=== PATIENT | female | born 1965 | race Hispanic/Latino ===

== ENCOUNTER 2016-08-01 05:07 | Emergency (ER) | payer OTHER ==
--- NOTE | 2016-08-01 05:10 | ED GENERAL ADULT ---
History of Present Illness General Chief Complaint: Lower Extremity Injury Stated Complaint: LEFT KNEE PAIN Source: patient Exam Limitations: no limitations Vital Signs & Intake/Output Vital Signs & Intake/Output Vital Signs Date Time Temp Pulse Resp B/P B/P Pulse O2 O2 Flow FiO2 Mean Ox Delivery Rate 08/01 0555 97 Room Air 08/01 05 97.4 76 18 96/65 97 Room Air 08/01 521 97.4 76 18 96/65 97 Room Air Allergies Coded Allergies: acetaminophen (From PERCOCET) (rash 08/01/16) oxycodone (From PERCOCET) (rash 08/01/16) Reconcile Medications Levothyroxine Sodium (Synthroid) 200 MCG TABLET 200 MCG PO D THYROID ( Reported) Triage Nurses Notes Reviewed? yes Onset: Abrupt Duration: hour(s): Timing: recent history HPI: 08/01/16 5:30 AM 50-year-old female presents to the emergency department with sudden onset of severe left-sided knee pain. The patient states she was in a usual state of health until early this morning when she bent over to get a shoe and she had sudden severe pain to the medial aspect of her left knee. She did not fall, there is no direct trauma. No other injuries or complaints. The onset of the symptoms were abrupt. The duration was just this morning. The severity was significant; as her symptoms required her to come to the emergency department for care Past History Travel History Traveled to [place] past 21 day No Medical History Any Pertinent Medical History? see below for history Endocrine: hypothyroidism Surgical History Surgical History: right arm surgery for nerve damage Family History Hx Contributory? No Review of Systems Review of Systems Constitutional: Denies: fever. EENTM: Reports: no symptoms. Respiratory: Denies: short of breath. Cardiovascular: Denies: chest pain. GI: Denies: abdominal pain. Genitourinary: Reports: no symptoms. Musculoskeletal: Reports: see HPI. Skin: Denies: rash. Neurological/Psychological: Reports: no symptoms. Hematologic/Endocrine: Reports: no symptoms. Physical Exam Physical Exam General Appearance: well developed/nourished, alert, awake, anxious, moderate distress Head: atraumatic, normal appearance Eyes: Bilateral: normal appearance, PERRL, EOMI. Ears, Nose, Throat: normal pharynx, normal ENT inspection Neck: normal inspection, supple Respiratory: normal breath sounds, chest non-tender, no respiratory distress Cardiovascular: regular rate/rhythm Peripheral Pulses: 4+ radial (R), 4+ radial (L) Back: normal range of motion Extremities: swelling, tenderness Neurologic/Psych: no motor/sensory deficits, awake, alert, oriented x 3 Skin: intact, normal color, warm/dry Comments: She has isolated tenderness to the medial aspect of the left knee. There is a small area of soft tissue swelling. There is no ligament instability. She can bear weight but with pain. She was given by mouth Motrin. X-ray was ordered and revealed no fracture but did show an effusion. She is placed in a knee immobilizer and crutches. Follow-up with orthopedist on Wednesday., Core Measures ACS in differential dx? No CVA/TIA Diagnosis: No Severe Sepsis Present: No Septic Shock Present: No Progress Differential Diagnoses I considered the following diagnoses in my evaluation of the patient: [Fracture, dislocation, knee sprain] Plan of Care: Orders Procedure Date/time Status Durable Medical Equipment 08/01 0720 Active Initial ED EKG: none Departure Departure Disposition: STILL A PATIENT Condition: Stable Clinical Impression Primary Impression: Knee sprain Referrals: CHRISTO JOSHUA,YUMIKO Mnejivar Departure Forms: Customer Survey General Discharge Information Critical Care Note Critical Care Note Critical Care Time: non-applicable
[2016-08-01 05:25] VITALS: BP 96/65
[2016-08-01] MEDS ORDERED: SYNTHROID200 MCG PO (05:55)
--- NOTE | 2016-08-01 07:09 | RADIOLOGY REPORT ---
EXAMINATION: XR KNEE, LEFT CLINICAL INFORMATION: Pain after fall. COMPARISON: No relevant prior imaging is available. TECHNIQUE: 3 views of the left knee. FINDINGS: There is no acute fracture or dislocation. Medial, lateral, and patellofemoral compartments are unremarkable. There is a tiny suprapatellar joint effusion. Soft tissues are otherwise unremarkable. IMPRESSION: Tiny suprapatellar joint effusion. Otherwise unremarkable radiographs of the left knee.
== END 2016-08-01 07:27 ==
LOC: ERH 05:07
DX: S83.92XA Sprain of unspecified site of left knee, initial encounter (principal); X58.XXXA Exposure to other specified factors, initial encounter; Y93.89 Activity, other specified; Y92.9 Unspecified place or not applicable
CPT/HCPCS: 73562-LT